=== PATIENT | female | born 1955 | race African-American/Black ===

== ENCOUNTER 2017-07-20 15:36 | Emergency (ER) | payer MEDICAID ==
[~2017-07-20] VITALS: Ht 162.6 cm; Wt 65.0 kg
[2017-07-20 15:42] VITALS: BP 134/70
[2017-07-20] MEDS ORDERED: FLUORESCEIN SODIUM 1MG/STRIP OP ONE (18:15)
[2017-07-20] MEDS ORDERED: TETRACAINE 0.5% OPHTH DROPS 4ML OP ONE (18:15)
== END 2017-07-20 18:50 | disposition home or self-care (01) ==
LOC: ER 15:42
DX: S05.01XA Injury of conjunctiva and corneal abrasion without foreign body, right eye, initial encounter (principal); X58.XXXA Exposure to other specified factors, initial encounter; Y93.9 Activity, unspecified; Y92.9 Unspecified place or not applicable; E11.9 Type 2 diabetes mellitus without complications
CPT/HCPCS: 99283